=== PATIENT | male | born 1945 | race Asian ===

== ENCOUNTER 2018-10-24 18:51 | Emergency (ER) | payer OTHER ==
[2018-10-24 19:06] VITALS: TEMP 98; BMI 29.0
[2018-10-24] MEDS ORDERED: MECLIZINE HCL 25 MG TABLET (FP) PO ONE (19:07)
--- NOTE | 2018-10-24 19:07 | PDOC ---
Rapid Medical Evaluation Time Seen by Provider: 10/24/18 18:56 Medical Evaluation: Allergies Allergy/AdvReac Type Severity Reaction Status Date / Time No Known Drug Allergies Allergy Verified 03/28/14 13:22 10/24/18 18:57 Pt c/o: elevated bp at home 167/80 and felt dizzy when he turned his head, suffers from vertigo and states similar feeling with episode but did not take his meclizine, took his bp meds this am. T mikayla not available so came to ED. No other complaints Pt on brief exam: vss, lcta,rrr pt ordered for: labs, ekg, urine, and meclizine, Dr. Rodriguez to be called after results Pt to proceed to the ED Discharge Disposition - Diagnosis Dizziness, High blood pressure - Discharge Dispostion Disposition: HOME Condition at time of disposition: Stable - Prescriptions Prescriptions: Meclizine HCl [Antivert -] 12.5 mg PO TID #60 tablet - Referrals Referrals: Iraida Rodriguez MD [Primary Care Provider] - Samson Bray MD [Staff Physician] - - Patient Instructions Printed Discharge Instructions: DI for High Blood Pressure, DI for Vertigo, DI for Hyponatremia Additional Instructions: You came to the ED for dizziness and a high blood pressure reading. Labs, Xray, and EKG did not indicate acute pathology. Your sodium level was noted to be low (130). Follow up with your primary care doctor regarding this. Prescription for meclizine sent to your pharmacy. Take as instructed. We have referred you to an ENT specialist. Call tomorrow morning and make an appointment. Your workup is not complete until you do so. Also, follow-up with your primary care provider this week to discuss this ED visit and to further evaluate your symptoms. Immediate medical attention is required if you experience: severe headache, have a seizure, have focal numbness or weakness, chest pain, shortness of breath , or any new or concerning symptoms. If you think you are having an emergency, call for emergency medical services or present to the emergency department right away. - Post Discharge Activity
--- NOTE | 2018-10-24 19:18 | PDOC ---
History of Present Illness - General Chief Complaint: Blood Pressure Problem Stated Complaint: HIGH BLOOD PRESSURE Time Seen by Provider: 10/24/18 18:56 Past History - Past Medical History Allergies/Adverse Reactions: Allergies Allergy/AdvReac Type Severity Reaction Status Date / Time No Known Drug Allergies Allergy Verified 03/28/14 13:22 Home Medications: Ambulatory Orders Lisinopril [Prinivil -] 40 mg PO DAILY 11/18/12 Verapamil HCl ER [Calan Sr -] 240 mg PO DAILY 11/18/12 Pravastatin Sodium 20 mg PO DAILY 03/28/14 Budesonide/Formeterol Fumarate [SYMBICORT 160/4.5mcg -] 1 inh PO BID PRN Hydrochlorothiazide [Hctz -] 12.5 mg PO DAILY 05/18/14 Meclizine HCl [Antivert -] 12.5 mg PO TID #60 tablet 10/24/18 Tamsulosin HCl 0.4 mg PO DAILY 10/24/18 Anemia: No Asthma: Yes (H/O BRONCHITIS/ASTHMA) Cancer: No Cardiac Disorders: No CVA: No COPD: No CHF: No Dementia: No Diabetes: No GI Disorders: No Disorders: No HTN: Yes Hypercholesterolemia: Yes Liver Disease: No Seizures: No Thyroid Disease: No - Surgical History Abdominal Surgery: Yes (LEFT INGUINAL HERNIA) - Suicide/Smoking/Psychosocial Hx Smoking History: Never smoked Have you smoked in the past 12 months: No Information on smoking cessation initiated: No Hx Alcohol Use: No Drug/Substance Use Hx: No Substance Use Type: None Hx Substance Use Treatment: No *Physical Exam - Vital Signs Last Vital Signs Temp Pulse Resp BP Pulse Ox 98.0 F 79 16 158/74 97 10/24/18 18:59 10/24/18 18:59 10/24/18 18:59 10/24/18 18:59 10/24/18 18:59 ED Treatment Course - LABORATORY CBC & Chemistry Diagram: 10/24/18 19:42 10/24/18 19:42 Medical Decision Making - Medical Decision Making HPI: 73yo M with PMH of HTN, HLD presenting with with high blood pressure reading. Patient states he was feeling dizzy around 3pm. The dizziness is consistent with his vertigo for which he used to take vertigo. Since his dizziness has not been problematic for the past year or so, he has not taken meclizine during that time. Patient checked his blood pressure because he was feeling poorly and noted it to be elevated, 167/80. Denies headache, weakness, vision changes, chest pain, or shortness of breath. Patient takes HCTZ 25mg and Lisinopril 40mg and reports medication compliance. Patient feels he is at his baseline currently. Denies dizziness right now. No fevers or chills. ROS: Constitutional: no fever, no chills HEENT: no throat pain, no dysphagia Cardiovascular: no chest pain, no palpitations Respiratory: no cough, no shortness of breath Gastrointestinal: no abdominal pain, no nausea Genitourinary: no dysuria, no hematuria Musculoskeletal: no myalgia, no arthralgia Skin: no rash, no itching Neurologic: no headache, +dizziness PE: General: Awake, alert, and fully oriented, in no acute distress Head: No signs of trauma Eyes: EOMI, sclera anicteric ENT: Moist mucus membranes Neck: Normal ROM, supple Lungs: Lungs clear, Normal breath sounds Cardio: Regular rhythm, S1 and S2 present Abdomen: Soft, nontender. No guarding, no rebound, no masses Extremities: Normal range of motion, Distal pulses present, No BLE edema, No calf tenderness SKIN: Warm, Dry, normal turgor Neurologic: Cranial nerves II through XII intact. Normal speech, sensation, strength, coordination, and gait. ED Courses/MDM: DDX including but not limited to hypertensive urgency vs emergency, ACS, syncope , CVA 10/24/18 19:19 CXR without acute pathology, my impression 10/24/18 20:33 CBC WBC 8.5 K/mm3 (4.0-10.0) 10/24/18 19:42 RBC 5.64 M/mm3 (4.00-5.60) H 10/24/18 19:42 Hgb 14.8 GM/dL (11.7-16.9) 10/24/18 19:42 Hct 43.1 % (35.4-49) 10/24/18 19:42 MCV 76.4 fl (80-96) L 10/24/18 19:42 MCH 26.3 pg (25.7-33.7) 10/24/18 19:42 MCHC 34.4 g/dl (32.0-35.9) 10/24/18 19:42 RDW 15.7 % (11.9-15.9) 10/24/18 19:42 Plt Count 299 K/MM3 (134-434) 10/24/18 19:42 MPV 6.9 fl (7.5-11.1) L 10/24/18 19:42 Absolute Neuts (auto) 5.9 K/mm3 (1.5-8.0) 10/24/18 19:42 Neutrophils % 70.1 % (42.8-82.8) D 10/24/18 19:42 Lymphocytes % 19.2 % (8-40) D 10/24/18 19:42 Monocytes % 9.2 % (3.8-10.2) 10/24/18 19:42 Eosinophils % 1.2 % (0-4.5) 10/24/18 19:42 Basophils % 0.3 % (0-2.0) 10/24/18 19:42 Nucleated RBC % 0 % (0-0) 10/24/18 19:42 No leukocytosis CMP Sodium 132 mmol/L (136-145) L 10/24/18 19:42 Potassium 3.9 mmol/L (3.5-5.1) 10/24/18 19:42 Chloride 96 mmol/L (98-107) L 10/24/18 19:42 Carbon Dioxide 28 mmol/L (21-32) 10/24/18 19:42 Anion Gap 8 MMOL/L (8-16) 10/24/18 19:42 BUN 12.6 mg/dL (7-18) 10/24/18 19:42 Creatinine 0.9 mg/dL (0.55-1.3) 10/24/18 19:42 Est GFR (CKD-EPI)AfAm 98.55 10/24/18 19:42 Est GFR (CKD-EPI)NonAf 85.03 10/24/18 19:42 Random Glucose 116 mg/dL (74-106) H 10/24/18 19:42 Calcium 9.1 mg/dL (8.5-10.1) 10/24/18 19:42 Total Bilirubin 0.7 mg/dL (0.2-1) 10/24/18 19:42 AST 13 U/L (15-37) L 10/24/18 19:42 ALT 22 U/L (13-61) 10/24/18 19:42 Alkaline Phosphatase 68 U/L (45-117) 10/24/18 19:42 Total Protein 7.7 g/dl (6.4-8.2) 10/24/18 19:42 Albumin 4.0 g/dl (3.4-5.0) 10/24/18 19:42 Low sodium Normal Cr No transaminitis Pending Tpn 10/24/18 20:35 EKG: rate 73, QTc 431, NSR, incomplete RBBB 10/24/18 20:38 Tpn undetectable Patient feeling he is at baseline Discharged 10/24/18 21:27 *DC/Admit/Observation/Transfer Diagnosis at time of Disposition: Dizziness High blood pressure Qualifiers: Hypertension type: unspecified Qualified Code(s): I10 - Essential (primary) hypertension - Discharge Dispostion Disposition: HOME Condition at time of disposition: Stable - Prescriptions Prescriptions: Meclizine HCl [Antivert -] 12.5 mg PO TID #60 tablet - Referrals Referrals: Iraida Rodriguez MD [Primary Care Provider] - Samson Bray MD [Staff Physician] - - Patient Instructions Printed Discharge Instructions: DI for High Blood Pressure, DI for Vertigo, DI for Hyponatremia Additional Instructions: You came to the ED for dizziness and a high blood pressure reading. Labs, Xray, and EKG did not indicate acute pathology. Your sodium level was noted to be low (130). Follow up with your primary care doctor regarding this. Prescription for meclizine sent to your pharmacy. Take as instructed. We have referred you to an ENT specialist. Call tomorrow morning and make an appointment. Your workup is not complete until you do so. Also, follow-up with your primary care provider this week to discuss this ED visit and to further evaluate your symptoms. Immediate medical attention is required if you experience: severe headache, have a seizure, have focal numbness or weakness, chest pain, shortness of breath , or any new or concerning symptoms. If you think you are having an emergency, call for emergency medical services or present to the emergency department right away. - Post Discharge Activity
[2018-10-24] MEDS ORDERED: MECLIZINE HCL 25 MG TABLET (FP) ONE (19:21)
[2018-10-24 19:49] LABS: BASO % 0.3 % (0-2.0); EOS % 1.2 % (0-4.5); HEMATOCRIT 43.1 % (35.4-49); HEMOGLOBIN 14.8 GM/dL (11.7-16.9); LYMPH % 19.2 % (8-40); MCH 26.3 pg (25.7-33.7); MCHC 34.4 g/dl (32.0-35.9); MEAN CELL VOLUME 76.4 fl (80-96); MEAN PLT VOLUME 6.9 fl (7.5-11.1); MONO % 9.2 % (3.8-10.2); NEUT % 70.1 % (42.8-82.8); PLATELET COUNT 299 K/MM3 (134-434); RBC 5.64 M/mm3 (4.00-5.60); RDW 15.7 % (11.9-15.9); WHITE BLOOD COUNT 8.5 K/mm3 (4.0-10.0)
[2018-10-24 20:31] LABS: BILIRUBIN,TOTAL 0.7 mg/dL (0.2-1); BLOOD UREA NITROGEN 12.6 mg/dL (7-18); CALCIUM 9.1 mg/dL (8.5-10.1); CREATININE 0.9 mg/dL (0.55-1.3); POTASSIUM 3.9 mmol/L (3.5-5.1); TOT PROT 7.7 g/dl (6.4-8.2)
--- NOTE | 2018-10-24 20:37 | PDOC ---
Documentation entered by Joselin Wesley SCRIBE, acting as scribe for Colleen Nicholas DO. Colleen Nicholas DO: This documentation has been prepared by the Maryjane astorga Adrianna, SCRIBE, under my direction and personally reviewed by me in its entirety. I confirm that the documentation accurately reflects all work, treatment, procedures, and medical decision making performed by me. Attending Attestation - Resident Resident Name: Mai HutchisonEstrella - ED Attending Attestation I have performed the following: I have examined & evaluated the patient, The case was reviewed & discussed with the resident, I agree w/resident's findings & plan, Exceptions are as noted - HPI HPI: The patient is a 73 year old male, with a significant PMH of HTN, HLD, vertigo, and asthma, who presents to the ED for evaluation of dizziness. Patient reports one episode of room-spinning dizziness earlier today. He checked his BP following, and notes it was elevated at 1767/80. Patient reports this episodes feel similar to his vertigo in the past, and notes his last vertigo episode was one year ago. Denies fever, chills, nausea, vomit, diarrhea, dysuria, abdominal pain, chest pain, SOB, URI symptoms, headache, ear pain, nose pain, changes in sensation, changes in vision, numbness or tingling. Allergies: NKA, NKDA Surgical History: Left inguinal hernia Social History: Denies EtOH, tobacco, or illicit drug use PCP: Dr. Rodriguez ENT: Dr. Bray - Physicial Exam PE: Constitutional: Awake, alert, oriented. No acute distress. Head: Normocephalic. Atraumatic Eyes: PERRL. EOMI. Conjunctivae are not pale. ENT: Mucous membranes are moist and intact. Posterior pharynx without exudates or erythema. Uvula midline. Neck: Supple. Full ROM. No lymphadenopathy. Cardiovascular: Regular rate. Regular rhythm. S1, S2 regular. Distal pulses are 2+ and symmetric. Pulmonary/Chest: No evidence of respiratory distress. Clear to auscultation bilaterally No wheezing, rales or rhonchi. Abdominal: Soft and nondistended. There is no tenderness. No rebound, guarding or rigidity. No organomegaly. No palpable masses. Good bowel sounds. Back: No CVA tenderness. Musculoskeletal: No edema. No cyanosis. No clubbing. Full range of motion in all extremities. No calf tenderness. Radial/pedal pulses are intact and 2+ bilaterally. Muscle strength 5/5 bilaterally. Skin: Skin is warm and dry. No petechiae. No purpura. Neurological: Alert and oriented to person, place, and time. Cranial nerves II -XII are grossly intact. Normal speech. Strength is grossly symmetric. No sensory deficits. Psychiatric: Good eye contact. Normal interaction, affect and behavior. - Medical Decision Making 10/24/18 19:54 I, Dr. Colleen Nicholas, DO, attest that this document has been prepared under my direction and personally reviewed by me in its entirety. I further attest, that it accurately reflects all work, treatment, procedures and medical decision -making performed by me. a/p: 73yo male with hx of vertigo with an episode of vertigo today -no n/v -no lee -no paresthesias, no weakness, no blurred vision -no ear or nose pain -no abd pain -no recent infections, no congestion, no dysuria -will send labs, meclizine given by [facility] which has resolved the vertigo sensation -has followed with dr. bray in the past -neuro intact -no ear infections -will monitor and reassess The patient is a 73 year old male, with a significant PMH of HTN, HLD, vertigo, and asthma, who presents to the ED for evaluation of dizziness. Patient reports one episode of room-spinning dizziness earlier today. He checked his BP following, and notes it was elevated at 1767/80. Patient reports this episodes feel similar to his vertigo in the past, and notes his last vertigo episode was one year ago. Denies fever, chills, nausea, vomit, diarrhea, chest pain, SOB, URI symptoms, changes in sensation, changes in vision. Allergies: NKA, NKDA Surgical History: Left inguinal hernia Social History: Denies EtOH, tobacco, or illicit drug use PCP: Dr. Rodriguez ENT: Dr. Bray Constitutional: Awake, alert, oriented. No acute distress. Head: Normocephalic. Atraumatic Eyes: PERRL. EOMI. Conjunctivae are not pale. ENT: Mucous membranes are moist and intact. Posterior pharynx without exudates or erythema. Uvula midline. Neck: Supple. Full ROM. No lymphadenopathy. Cardiovascular: Regular rate. Regular rhythm. S1, S2 regular. Distal pulses are 2+ and symmetric. Pulmonary/Chest: No evidence of respiratory distress. Clear to auscultation bilaterally No wheezing, rales or rhonchi. Abdominal: Soft and nondistended. There is no tenderness. No rebound, guarding or rigidity. No organomegaly. No palpable masses. Good bowel sounds. Back: No CVA tenderness. Musculoskeletal: No edema. No cyanosis. No clubbing. Full range of motion in all extremities. No calf tenderness. Radial/pedal pulses are intact and 2+ bilaterally. Muscle strength 5/5 bilaterally. Skin: Skin is warm and dry. No petechiae. No purpura. Neurological: Alert and oriented to person, place, and time. Cranial nerves II -XII are grossly intact. Normal speech. Strength is grossly symmetric. No sensory deficits. Psychiatric: Good eye contact. Normal interaction, affect and behavior. 10/24/18 20:23 cxr clear 10/24/18 20:39 labs reviewed pending trop 10/24/18 20:49 pt stable for dc to home trop negative Heart Score/ECG Review - ECG Intrepretation Comment:: 10/24/18 20:36 sinus at 73, nl axis, incomplete rbbb, no acute st/t wave findings
[2018-10-24 21:14] VITALS: BP 154/80; PULSE 67
--- NOTE | 2018-10-25 12:01 | EKG ---
Test Reason : Blood Pressure : / mmHG Vent. Rate : 073 BPM Atrial Rate : 073 BPM P-R Int : 172 ms QRS Dur : 108 ms QT Int : 392 ms P-R-T Axes : 057 -18 015 degrees QTc Int : 431 ms NORMAL SINUS RHYTHM INCOMPLETE RIGHT BUNDLE BRANCH BLOCK MINIMAL VOLTAGE CRITERIA FOR LVH, MAY BE NORMAL VARIANT WHEN COMPARED WITH ECG OF 18-NOV-2012 09:26, NO SIGNIFICANT CHANGE WAS FOUND Confirmed by BRITTANIE KRISHNAMURTHY MD ([id number]) on 10/25/2018 12:00:43 PM Referred By: Confirmed By:BRITTANIE KRISHNAMURTHY MD
== END 2018-10-24 21:15 | disposition home or self-care (01) ==
LOC: JER 18:51
DX: R42 Dizziness and giddiness (principal); I10 Essential (primary) hypertension; E78.5 Hyperlipidemia, unspecified; J45.909 Unspecified asthma, uncomplicated
CPT/HCPCS: 36415; 71045-TC-FY; 80053; 82550; 82553; 84484; 85025; 93005; 93010; 99283-25

== ENCOUNTER 2023-10-01 04:34 | Day surgery (SDC) | payer OTHER ==
[2023-09-28 11:49] VITALS: BMI 28.4
[2023-10-01 11:06] VITALS: TEMP 97.7
[2023-10-01 11:44] VITALS: RESP 18
[2023-10-01 11:50] VITALS: BP 131/58; PULSE 59
== END 2023-10-01 12:00 | disposition home or self-care (01) ==
LOC: JASU-ENDO 04:34
PROVIDERS: ATTEND Internal Medicine Gastroenterology
PROC: 0DBL8ZX Excision of Transverse Colon, Via Natural or Artificial Opening Endoscopic, Diagnostic (ICD-10-PCS; 2023-10-01)
PROC: 0DBP8ZX Excision of Rectum, Via Natural or Artificial Opening Endoscopic, Diagnostic (ICD-10-PCS; principal; 2023-10-01 10:00)
DX: Z12.11 Encounter for screening for malignant neoplasm of colon (principal); D12.8 Benign neoplasm of rectum; K63.5 Polyp of colon; K64.8 Other hemorrhoids; Z86.010 Personal history of colon polyps; I10 Essential (primary) hypertension
CPT/HCPCS: 88305-TC